=== PATIENT | male | born 1985 | race Caucasian/White ===

== ENCOUNTER 2018-01-15 02:43 | Emergency (ER) | payer MEDICAID, OTHER ==
--- NOTE | 2018-01-15 03:14 | EDPHY ---
H & P Stated Complaint: lsd ingestion possible glass vial Time Seen by Provider: 01/15/18 03:02 HPI/ROS: Chief Complaint: LSD and foreign body ingestion HPI: 32-year-old male resident of the nursing home is who was on furlough today. When he returned to the nursing home guards noted that he had an object with him. He proceeded to swallow a vial which he stated contained LSD. He then became altered and began hallucinating. He is brought in for evaluation for ingestion of a foreign body. He is awake alert. He is answering questions but not appropriately. Is currently without complaint. Admits to taking LSD. He denies swallowing of foreign body. No fevers or chills. No nausea or vomiting. ROS: 10 systems were reviewed and were negative except those elements noted in the HPI. Social History: Positive smoking Family History: non-contributory Physical Exam: Gen: Awake, Alert, eyes dilated, responding to internal stimuli HEENT: Nose: no rhinorrhea Eyes: PERRLA, EOMI Mouth: Moist mucosa Neck: Supple, no JVD Chest: nontender, lungs clear to auscultation Heart: S1, S2 normal, no murmur Abd: Soft, non-tender, no guarding Back: no CVA tenderness, no midline tenderness Ext: no edema, non-tender Skin: no rash Neuro: CN II-XII intact, Sensation grossly intact, Strength 5/5 in bilateral upper and lower extremities - Personal History Current Tetanus/Diphtheria Vaccine: Yes Current Tetanus Diphtheria and Acellular Pertussis (TDAP): Yes - Medical/Surgical History Hx Asthma: No Hx Chronic Respiratory Disease: No Hx Diabetes: No Hx Cardiac Disease: No Hx Renal Disease: No Hx Cirrhosis: No Hx Alcoholism: Yes Hx HIV/AIDS: No Hx Splenectomy or Spleen Trauma: No Other PMH: DENIES - Social History Smoking Status: Never smoked Constitutional: Initial Vital Signs Temperature (C) 36.7 C 01/15/18 02:45 Heart Rate 115 H 01/15/18 02:45 Respiratory Rate 18 01/15/18 02:45 Blood Pressure 139/86 H 01/15/18 02:45 O2 Sat (%) 96 01/15/18 02:45 O2 Delivery Mode Room Air Allergies/Adverse Reactions: No Known Allergies Allergy (Unverified 11/06/17 21:49) Home Medications: Medication Instructions Recorded Adderall 10 MG (*) 11/06/17 Gabapentin 11/06/17 Medical Decision Making - Diagnostics Imaging Results: KUB shows this silhouette of a glass vial in his abdomen. There is also large amount of stool. No evidence of perforation or obstruction. Imaging: I viewed and interpreted images myself ED Course/Re-evaluation: 32-year-old male with ingested glass vial. Is intact. It does not appear to be at risk of breaking. There is no evidence of perforation at this time. Patient's abdomen is soft and benign. He is calm and cooperative. Plan will be to discharge back to the nursing home. He is medically cleared. Departure - Departure Disposition: Home, Routine, Self-Care Clinical Impression: Foreign body ingestion, Lysergic acid diethylamide (LSD) abuse, Constipation Condition: Good Instructions: Foreign Body Ingestion (ED), Polysubstance Abuse (ED) Additional Instructions: Return to the emergency department for increasing abdominal pain, nausea, vomiting, agitation, aggressive behavior, suicidal thoughts, or any other concerns. MEDICALLY CLEAR FOR SENIOR LIVING Referrals: NONE *PRIMARY CARE P,. [Primary Care Provider] - As per Instructions
[2018-01-15 04:53] VITALS: BP 149/104
== END 2018-01-15 04:55 | disposition home or self-care (01) ==
DX: F16.10 Hallucinogen abuse, uncomplicated (principal); T18.9XXA Foreign body of alimentary tract, part unspecified, initial encounter; K59.00 Constipation, unspecified

== ENCOUNTER 2018-08-30 13:26 | Inpatient (IN) | payer MEDICAID, OTHER | END 2018-09-05 13:45 | disposition home or self-care (01) | LOC: BBEH 09-04 14:47 ==